=== PATIENT | male | born 1965 | race Caucasian/White ===

== ENCOUNTER 2018-11-17 12:21 | Outpatient (CLI) | payer BC ==
--- NOTE | 2018-11-17 12:54 | RAD ---
Exam:Right knee 4 views HISTORY: Pain. 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 No fracture. No cortical irregularity or periosteal reaction. Joint spaces are preserved. No joint ef fusion. IMPRESSION: No radiographic abnormality. If there is concern for internal derangement, consider MRI
== END 2018-11-17 12:22 | disposition home or self-care (01) ==
LOC: BICRAD 12:21
PROVIDERS: ATTEND Specialist
DX: M25.561 Pain in right knee (principal)

== ENCOUNTER 2018-12-06 10:45 | Outpatient (CLI) | payer BC ==
--- NOTE | 2018-12-06 13:21 | MRI ---
MRI OF RIGHT KNEE PERFORMED WITHOUT COTNRAST ENHANCEMENT: HISTORY: Knee injury in October and having knee pain ever since. FINDINGS: The anterior as well as posterior cruciate ligaments are intact. The lateral meniscus has a normal shape and appearance. The medial meniscus shows a truncated appear ance to the body of the meniscus and displaced meniscal tissue displaced centrally which still appear s to connect to the posterior and anterior horns and would be compatible with a bucket handle-type te ar. In addition, there is an undersurface flap-type component of this tear in the body region which extends to near the menisculocapsular junction. The medial and lateral collateral ligaments and iliotibial band regions appear unremarkable. Patellar articular cartilage is intact. The medial and lateral patellar retinaculum and quadriceps a nd patellar tendons are normal. IMPRESSION: Bucket handle-type tear of the medial meniscus. POS: EMILIE
== END 2018-12-06 10:46 | disposition home or self-care (01) ==
LOC: SCSMRI 10:45
PROVIDERS: ATTEND Specialist
DX: S83.501D Sprain of unspecified cruciate ligament of right knee, subsequent encounter (principal); S83.241D Other tear of medial meniscus, current injury, right knee, subsequent encounter

== ENCOUNTER 2019-07-27 08:08 | Emergency (ER) | payer BC ==
[2019-07-27 08:45] LABS: #Basophils 0.1 thou/uL (0.0-0.2); #Eosinphils 0.1 thou/uL (0.0-0.7); #Lymphocytes 1.4 thou/uL (1.20-3.40); #Monocytes 0.9 thou/uL (0.11-0.59); #Neutrophils 9.7 thou/uL (1.40-6.50); %Basophils 0.6 % (0.0-1.0); %Eosinophils 1.1 % (0.0-10.0); %Lymphocytes 11.5 % (21.0-51.0); %Monocytes 7.6 % (0.0-10.0); %Neutrophils 79.3 % (42.0-75.0); Hemoglobin 16.1 g/dL (14.0-18.0); Mean Corpuscular HGB CONC 34.8 g/dL (32.0-36.0); Mean Corpuscular Hemoglobin 32.4 pg (27.0-31.0); Mean Platelet Volume 7.8 fL (7.4-10.4); Platelet Count 242 thou/uL (130-400); RBC Distribution Width 11.1 % (11.5-14.5); Red Blood Cell (RBC) Count 4.96 mill/uL (4.70-6.10); White Blood Cell (WBC) Count 12.2 thou/uL (4.8-10.8)
--- NOTE | 2019-07-27 08:47 | RAD ---
Exam:3 views left thumb HISTORY: Evaluate for foreign body. COMPARISON: None FINDINGS: Preserved joint spaces. No fracture, cortical irregularity. No periosteal reaction. No radi opaque foreign body IMPRESSION: No radiopaque foreign body
[2019-07-27] MEDS ORDERED: Adacel (T-DAP) 0.5 ML SYRINGE ONE (08:51)
[2019-07-27 09:20] LABS: Anion Gap 13 mmol/L (10-20); BUN (Urea Nitrogen) 12 mg/dL (8.4-25.7); Calc. Creatinine Clearance 0 mL/min (70-130); Calcium 9.1 mg/dL (7.8-10.44); Carbon Dioxide 21 mmol/L (22-29); Chloride 107 mmol/L (98-107); Estimated GFR-MDRD 85; Glucose 201 mg/dL (70-105); Potassium 4.3 mmol/L (3.5-5.1); Sodium 137 mmol/L (136-145)
== END 2019-07-27 09:32 | disposition home or self-care (01) ==
LOC: ERS 08:08
DX: L03.012 Cellulitis of left finger (principal); E11.9 Type 2 diabetes mellitus without complications; Z23 Encounter for immunization; Z79.84 Long term (current) use of oral hypoglycemic drugs
CPT/HCPCS: 36415; 80048; 85025; 85652; 86140; 90471; 90715

== ENCOUNTER 2019-07-30 09:08 | Emergency (ER) | payer BC, OTHER | END 2019-07-30 10:54 | disposition home or self-care (01) | LOC: ERS 09:08 | DX: L03.114 Cellulitis of left upper limb (principal); E11.9 Type 2 diabetes mellitus without complications; Z79.84 Long term (current) use of oral hypoglycemic drugs | CPT/HCPCS: 99283 ==

== ENCOUNTER 2020-11-24 09:38 | Inpatient (IN) | payer BC, OTHER ==
[2020-11-24] MEDS ORDERED: diphenhydrAMINE 25 MG CAP ONE (09:50)
[2020-11-24] MEDS ORDERED: methylPREDNISolone Sod Succ/PF 125 MG/2 ML VIAL ONE (10:52)
[2020-11-24] MEDS ORDERED: diphenhydrAMINE 50 MG/ML VIAL ONE (10:52)
[2020-11-24] MEDS ORDERED: Famotidine/PF 20 mg/2ml Vial ONE (10:52)
[2020-11-24 11:05] LABS: #Eosinphils 0.1 thou/uL (0.0-0.7); #Lymphocytes 1.4 thou/uL (1.20-3.40); #Monocytes 0.7 thou/uL (0.11-0.59); #Neutrophils 6.8 thou/uL (1.40-6.50); %Basophils 0.5 % (0.0-1.0); %Eosinophils 0.9 % (0.0-10.0); %Lymphocytes 15.6 % (21.0-51.0); %Monocytes 7.5 % (0.0-10.0); %Neutrophils 75.6 % (42.0-75.0); Hemoglobin 13.7 g/dL (14.0-18.0); Mean Corpuscular HGB CONC 32.3 g/dL (32.0-36.0); Mean Corpuscular Hemoglobin 30.5 pg (27.0-31.0); Mean Corpuscular Volume 94.6 fL (78.0-98.0); Mean Platelet Volume 8.4 fL (7.4-10.4); Platelet Count 230 thou/uL (130-400); RBC Distribution Width 11.2 % (11.5-14.5)
[2020-11-24 11:24] LABS: ALT (SGPT) 30 U/L (8-55); AST (SGOT) 15 U/L (5-34); Albumin 4.1 g/dL (3.5-5.0); Alkaline Phosphatase 62 U/L (40-110); Anion Gap 14 mmol/L (10-20); BUN (Urea Nitrogen) 15 mg/dL (8.4-25.7); Bilirubin, Total 0.4 mg/dL (0.2-1.2); Calc. Creatinine Clearance 0 mL/min (70-130); Calcium 9.1 mg/dL (7.8-10.44); Carbon Dioxide 22 mmol/L (22-29); Chloride 106 mmol/L (98-107); Globulin 2.4 g/dL (2.4-3.5); Glucose 232 mg/dL (70-105); Potassium 4.5 mmol/L (3.5-5.1); Protein, Total 6.5 g/dL (6.0-8.3); Sodium 137 mmol/L (136-145)
[2020-11-24] MEDS ORDERED: Diltiazem 125 MG/25 ML ONE (11:57)
[2020-11-24] MEDS ORDERED: Magnesium 2 GM/50 ML BAG (IN WATER) ONE (12:25)
[2020-11-24] MEDS ORDERED: Enoxaparin Sodium 30 MG/0.3 ML SYRINGE ONE (15:39)
[2020-11-24] MEDS ORDERED: Enoxaparin Sodium 100 MG/ML SYRINGE ONE (15:39)
[2020-11-24 16:50] LABS: Troponin I Less than 0.010 ng/mL (< 0.028)
[2020-11-24] MEDS: Diltiazem 125 MG in Sodium Chloride 0.9% 100 ML IVPB SCH (19:00)
[2020-11-24 19:13] LABS: Troponin I Less than 0.010 ng/mL (< 0.028)
[2020-11-24] MEDS ORDERED: Ondansetron PF 4 MG/2 ML Vial IVP PRN (20:25)
[2020-11-24] MEDS ORDERED: Acetaminophen 325 MG TAB PO PRN (20:25)
[2020-11-24] MEDS ORDERED: diphenhydrAMINE 50 MG/ML VIAL IVP PRN (20:26)
[2020-11-24] MEDS ORDERED: Dextrose 5% in Water 1,000 ML IV PRN (20:30)
[2020-11-24] MEDS ORDERED: Sodium Chloride 0.9% (PF) 10 ML VIAL FS PRN (20:30)
[2020-11-24] MEDS ORDERED: Dextrose 50% Abboject 50 ML SYRINGE IVP PRN (20:30)
[2020-11-24] MEDS: metFORMIN 500 MG TAB PO SCH (22:25)
[2020-11-24] MEDS: Sodium Chloride 0.9% 1,000 ML IV SCH (22:26)
[2020-11-25 00:20] VITALS: BMI 32.4
[2020-11-25] MEDS: Sodium Chloride 0.9% 1,000 ML IV SCH ×3 (03:31→22:35)
[2020-11-25] MEDS: Diltiazem 125 MG in Sodium Chloride 0.9% 100 ML IVPB SCH (03:32)
[2020-11-25 07:51] LABS: #Lymphocytes 1.6 thou/uL (1.20-3.40); #Monocytes 1.1 thou/uL (0.11-0.59); #Neutrophils 10.4 thou/uL (1.40-6.50); %Basophils 0.2 % (0.0-1.0); %Eosinophils 0.2 % (0.0-10.0); %Lymphocytes 12.1 % (21.0-51.0); %Monocytes 8.4 % (0.0-10.0); %Neutrophils 79.1 % (42.0-75.0); Hemoglobin 13.5 g/dL (14.0-18.0); Mean Corpuscular HGB CONC 33.1 g/dL (32.0-36.0); Mean Corpuscular Hemoglobin 31.4 pg (27.0-31.0); Mean Corpuscular Volume 95.1 fL (78.0-98.0); Mean Platelet Volume 8.7 fL (7.4-10.4); Platelet Count 225 thou/uL (130-400); RBC Distribution Width 11.3 % (11.5-14.5); Red Blood Cell (RBC) Count 4.29 mill/uL (4.70-6.10); White Blood Cell (WBC) Count 13.2 thou/uL (4.8-10.8)
[2020-11-25 08:13] LABS: ALT (SGPT) 25 U/L (8-55); AST (SGOT) 14 U/L (5-34); Albumin 3.6 g/dL (3.5-5.0); Alkaline Phosphatase 51 U/L (40-110); Anion Gap 14 mmol/L (10-20); BUN (Urea Nitrogen) 18 mg/dL (8.4-25.7); Bilirubin, Total 0.3 mg/dL (0.2-1.2); Calc. Creatinine Clearance 144 mL/min (70-130); Calcium 8.4 mg/dL (7.8-10.44); Carbon Dioxide 20 mmol/L (22-29); Chloride 109 mmol/L (98-107); Globulin 2.3 g/dL (2.4-3.5); Glucose 215 mg/dL (70-105); Potassium 4.5 mmol/L (3.5-5.1); Protein, Total 5.9 g/dL (6.0-8.3); Sodium 138 mmol/L (136-145)
[2020-11-25] MEDS: metFORMIN 500 MG TAB PO SCH ×2 (08:58→22:36)
[2020-11-25] MEDS: Flecainide 50 MG TAB PO SCH ×2 (08:59→22:35)
[2020-11-25] MEDS: Pantoprazole 40 MG VIAL IVP SCH (08:59)
[2020-11-25] MEDS: Insulin Regular 300 UNITS/3 ML VIAL SC PRN ×2 (12:32→17:22)
[2020-11-25 17:05] LABS: SARS-CoV-2 PCR by NAA Not Detected (NotDetected)
[2020-11-25] MEDS ORDERED: Rivaroxaban 10 MG TAB PO SCH (18:00)
[2020-11-25] MEDS ORDERED: Flecainide 50 MG TAB PO SCH (21:00)
[2020-11-26 08:11] VITALS: BP 142/89; TEMP 98.4
[2020-11-26] MEDS: Flecainide 50 MG TAB PO SCH (09:47)
[2020-11-26] MEDS: metFORMIN 500 MG TAB PO SCH (09:47)
[2020-11-26] MEDS: Pantoprazole 40 MG VIAL IVP SCH (09:48)
== END 2020-11-26 11:59 | disposition home or self-care (01) | DRG 310 ==
LOC: ERS 09:38 → 2SE 18:17
PROVIDERS: ADMIT Specialist; ATTEND Specialist
DX: I48.92 Unspecified atrial flutter (principal); T63.461A Toxic effect of venom of wasps, accidental (unintentional), initial encounter; Z23 Encounter for immunization; Z20.822 Contact with and (suspected) exposure to COVID-19; E11.9 Type 2 diabetes mellitus without complications; I48.0 Paroxysmal atrial fibrillation; T38.0X5A Adverse effect of glucocorticoids and synthetic analogues, initial encounter; D72.829 Elevated white blood cell count, unspecified; Z79.899 Other long term (current) drug therapy; Z79.84 Long term (current) use of oral hypoglycemic drugs
CPT/HCPCS: 36415; 36416; 71045; 80053; 84443; 84484; 85025; 90471; 90732; 93005; 93010; 93306; 96365; 96366; 96367; 96372; 96375; 96376; C9113; G0009; J1200; J1650; J1815; J2930; J3475; J3490; Q0163; S0028; U0003; U0005

== ENCOUNTER 2021-07-20 10:12 | Emergency (ER) | payer OTHER ==
[2021-07-20 10:54] LABS: #Basophils 0.1 thou/uL (0.0-0.2); #Eosinphils 0.1 thou/uL (0.0-0.7); #Lymphocytes 1.5 thou/uL (1.20-3.40); #Monocytes 0.5 thou/uL (0.11-0.59); #Neutrophils 5.5 thou/uL (1.40-6.50); %Basophils 0.8 % (0.0-1.0); %Eosinophils 1.6 % (0.0-10.0); %Lymphocytes 19.5 % (21.0-51.0); %Monocytes 6.7 % (0.0-10.0); %Neutrophils 71.4 % (42.0-75.0); Hemoglobin 14.2 g/dL (14.0-18.0); Mean Corpuscular HGB CONC 32.5 g/dL (32.0-36.0); Mean Corpuscular Hemoglobin 30.7 pg (27.0-31.0); Mean Corpuscular Volume 94.4 fL (78.0-98.0); Mean Platelet Volume 7.8 fL (7.4-10.4); Platelet Count 224 thou/uL (130-400); RBC Distribution Width 11.1 % (11.5-14.5); Red Blood Cell (RBC) Count 4.63 mill/uL (4.70-6.10); White Blood Cell (WBC) Count 7.7 thou/uL (4.8-10.8)
[2021-07-20 11:15] LABS: PTT 28.4 sec (22.9-36.1); Prothrombin Time 12.9 sec (12.0-14.7)
[2021-07-20 11:19] LABS: Albumin 4.1 g/dL (3.5-5.0); Anion Gap 13 mmol/L (10-20); BUN (Urea Nitrogen) 14 mg/dL (8.4-25.7); Bilirubin, Total 0.5 mg/dL (0.2-1.2); Calc. Creatinine Clearance 0 mL/min (70-130); Calcium 9.1 mg/dL (7.8-10.44); Carbon Dioxide 24 mmol/L (22-29); Chloride 104 mmol/L (98-107); Globulin 2.6 g/dL (2.4-3.5); Glucose 250 mg/dL (70-105); Potassium 4.5 mmol/L (3.5-5.1); Protein, Total 6.7 g/dL (6.0-8.3); Sodium 136 mmol/L (136-145)
[2021-07-20 11:20] LABS: ALT (SGPT) 32 U/L (8-55); AST (SGOT) 18 U/L (5-34); Alkaline Phosphatase 81 U/L (40-110)
[2021-07-20] MEDS ORDERED: Iopamidol-370 76% 500 ML 1 ML ONE (11:42)
== END 2021-07-20 13:04 | disposition home or self-care (01) ==
LOC: ERS 10:12
DX: K64.8 Other hemorrhoids (principal); I48.91 Unspecified atrial fibrillation; E11.9 Type 2 diabetes mellitus without complications; Z79.84 Long term (current) use of oral hypoglycemic drugs; Z79.899 Other long term (current) drug therapy
CPT/HCPCS: 36415; 74177; 80053; 85025; 85610; 85730; 86850; 86900; 86901; Q9967

== ENCOUNTER 2022-02-05 09:20 | Outpatient (CLI) | payer BC ==
[2022-02-05 11:27] LABS: Hemoglobin 13.4 g/dL (13.5-17.5); Mean Corpuscular HGB CONC 33.4 g/dL (32.0-36.0); Mean Corpuscular Hemoglobin 31.2 pg (27.0-33.0); Mean Corpuscular Volume 93.3 fl (81.2-95.1); Mean Platelet Volume 11.4 fl (7.4-10.4); Platelet Count 261 10x3/uL (150-450); RBC Distribution Width 12.2 % (11.5-14.5); White Blood Cell (WBC) Count 7.9 10x3/uL (3.5-10.5)
[2022-02-05 11:37] LABS: PTT 28.2 sec (22.0-33.0); Prothrombin Time 10.7 sec (9.5-12.1)
[2022-02-05 11:38] LABS: Anion Gap 13 mmol/L (10-20); BUN (Urea Nitrogen) 21 mg/dL (8.4-25.7); Calc. Creatinine Clearance 0 mL/min (70-130); Calcium 9.1 mg/dL (7.8-10.44); Carbon Dioxide 24 mmol/L (22-29); Chloride 107 mmol/L (98-107); Estimated GFR 101; Glucose 237 mg/dL (70-105); Potassium 4.4 mmol/L (3.5-5.1); Sodium 140 mmol/L (136-145)
== END 2022-02-05 09:21 | disposition home or self-care (01) ==
LOC: LABBT 09:20
PROVIDERS: ATTEND Internal Medicine Cardiovascular Disease
DX: Z01.818 Encounter for other preprocedural examination (principal); I47.1 Supraventricular tachycardia; I48.0 Paroxysmal atrial fibrillation; Z98.890 Other specified postprocedural states; Z86.79 Personal history of other diseases of the circulatory system; Z20.822 Contact with and (suspected) exposure to COVID-19
CPT/HCPCS: 80048; 85027; 85610; 85730; 87811; 93005; 93010

== ENCOUNTER 2022-02-10 05:45 | Day surgery (SDC) | payer BC ==
[2022-02-08 13:55] VITALS: BMI 32.5
[2022-02-10] MEDS ORDERED: Protamine Sulfate 50 MG/5 ML VIAL ONE (06:51)
[2022-02-10] MEDS ORDERED: Isoproterenol 0.2 MG/1 ML AMP ONE ×2 (06:51→09:55)
[2022-02-10] MEDS ORDERED: Heparin 25,000 units/D5W 500 ML ONE (06:51)
[2022-02-10] MEDS ORDERED: Heparin 10,000 UNITS/ 10 ML VIAL ONE ×2 (06:51→09:23)
[2022-02-10] MEDS ORDERED: fentaNYL Citrate/PF 100 MCG/2 ML SYRINGE ONE (07:04)
[2022-02-10] MEDS ORDERED: Midazolam HCl 2 mg/2 ml Vial ONE (07:16)
[2022-02-10] MEDS ORDERED: Rocuronium Bromide 10 MG/ML (10ML VIAL) ONE (07:30)
[2022-02-10] MEDS ORDERED: Ondansetron PF 4 MG/2 ML Vial ONE (07:30)
[2022-02-10] MEDS ORDERED: PROPOFOL 200 MG/20 ML VIAL ONE (07:30)
[2022-02-10] MEDS ORDERED: Metoclopramide HCl 10 MG/2 ML VIAL ONE (07:30)
[2022-02-10] MEDS ORDERED: Phenylephrine 10 MG/ML VIAL ONE (07:30)
[2022-02-10] MEDS ORDERED: SUGAMMADEX SODIUM 200 MG/2 ML VIAL ONE (09:49)
[2022-02-10] MEDS ORDERED: Furosemide 40 MG TAB PO PRN (11:07)
[2022-02-10] MEDS ORDERED: Potassium Chloride 20 MEQ TAB PO PRN (11:07)
[2022-02-10] MEDS ORDERED: Acetaminophen 325 MG TAB PO PRN (11:08)
[2022-02-10] MEDS ORDERED: Sucralfate 1 GM TAB PO SCH (17:00)
[2022-02-10] MEDS ORDERED: metFORMIN 500 MG TAB PO SCH (21:00)
[2022-02-10] MEDS ORDERED: Fish Oil 1,000 MG CAP PO SCH (21:00)
[2022-02-10] MEDS ORDERED: Apixaban 5 MG TAB PO SCH (21:00)
[2022-02-11] MEDS ORDERED: Rosuvastatin 10 MG TAB PO SCH (09:00)
[2022-02-11] MEDS ORDERED: Alogliptin 25 MG TAB PO SCH (09:00)
[2022-02-11] MEDS ORDERED: Pioglitazone HCl 45 MG TAB PO SCH (09:00)
[2022-02-11] MEDS ORDERED: Lisinopril 10 MG TAB PO SCH (09:00)
[2022-02-11] MEDS ORDERED: Cholecalciferol 1,000 UNITS (25 MCG) TAB PO SCH (09:00)
[2022-02-11] MEDS ORDERED: Magnesium Oxide 250 MG TAB PO SCH (09:00)
[2022-02-11] MEDS ORDERED: GARLIC 400 MG PO SCH (09:00)
[2022-02-11] MEDS ORDERED: Multivitamin W/ Minerals 1 TAB PO SCH (09:00)
[2022-02-14] MEDS ORDERED: Non-Formulary Item 1 EACH (Semaglutide [Ozempic] 1 MG/0.75 ML Pen.Injctr) SC SCH (09:00)
== END 2022-02-10 15:41 | disposition home or self-care (01) ==
LOC: SDC 05:45
PROVIDERS: ATTEND Internal Medicine Cardiovascular Disease
DX: I48.19 Other persistent atrial fibrillation (principal); I48.3 Typical atrial flutter; I47.1 Supraventricular tachycardia; E11.9 Type 2 diabetes mellitus without complications; I10 Essential (primary) hypertension; E78.00 Pure hypercholesterolemia, unspecified; Z79.01 Long term (current) use of anticoagulants; Z79.84 Long term (current) use of oral hypoglycemic drugs; Z79.899 Other long term (current) drug therapy; Z98.890 Other specified postprocedural states
CPT/HCPCS: 85347; 93005; 93623; 93655; 93656; 93657; 93662; J1644; J2250; J2370; J2405; J2704; J2720; J2765

== ENCOUNTER 2022-11-09 07:37 | Emergency (ER) | payer BC ==
[2022-11-09] MEDS ORDERED: Famotidine 20 MG TAB ONE (08:24)
[2022-11-09] MEDS ORDERED: predniSONE 20 MG TAB ONE (08:24)
== END 2022-11-09 08:49 | disposition home or self-care (01) ==
LOC: ERS 07:37
DX: T78.40XA Allergy, unspecified, initial encounter (principal); E11.9 Type 2 diabetes mellitus without complications; Z79.84 Long term (current) use of oral hypoglycemic drugs; Z79.899 Other long term (current) drug therapy
CPT/HCPCS: 99283; J7512

== ENCOUNTER 2024-02-23 15:35 | Outpatient (CLI) | payer BC, OTHER, SELFPAY | END 2024-02-23 15:36 | disposition home or self-care (01) | LOC: SCSRAD 15:35 | PROVIDERS: ATTEND Nurse Practitioner Family | DX: Z91.81 History of falling (principal) | CPT/HCPCS: 72040; 72072; 72100 ==

== ENCOUNTER 2024-07-26 10:52 | Emergency (ER) | payer BC ==
[2024-07-26] MEDS ORDERED: Lidocaine 1% PF 5 ML VIAL ONE (11:52)
== END 2024-07-26 13:34 | disposition home or self-care (01) ==
LOC: ERS 10:52
DX: S61.213A Laceration without foreign body of left middle finger without damage to nail, initial encounter (principal); E11.9 Type 2 diabetes mellitus without complications; Z79.01 Long term (current) use of anticoagulants; Z79.82 Long term (current) use of aspirin; Z79.84 Long term (current) use of oral hypoglycemic drugs; W26.0XXA Contact with knife, initial encounter; Z87.891 Personal history of nicotine dependence
CPT/HCPCS: 12001; 99282

== ENCOUNTER 2025-02-11 08:53 | Outpatient (CLI) | payer BC | END 2025-02-11 08:54 | disposition home or self-care (01) | LOC: SCSMRI 08:53 | PROVIDERS: ATTEND Specialist | DX: H47.099 Other disorders of optic nerve, not elsewhere classified, unspecified eye (principal) | CPT/HCPCS: 70553; 76376 ==